=== PATIENT | male | born 1960 | race Caucasian/White ===

== ENCOUNTER → 2017-04-25 | Outpatient (REF) | payer OTHER ==
[2017-04-26 11:00] LABS: FREE T3 3.7 PG/ML (2.2-4.0)
== END ==
LOC: M LAB REF 10:28
DX: E03.9 Hypothyroidism, unspecified (principal)

== ENCOUNTER → 2020-07-26 | Outpatient (REF) | payer OTHER | LOC: M LAB REF 12:01 | PROVIDERS: ATTEND Nurse Practitioner Adult Health | DX: E03.9 Hypothyroidism, unspecified (principal) ==

== ENCOUNTER 2021-08-16 19:26 | Emergency (ER) | payer OTHER ==
[~2021-08-16] VITALS: Ht 175.3 cm; Wt 97.5 kg
[2021-08-16] MEDS ORDERED: ONDANSETRON 4MG/2ML VIAL IV ONE (19:50)
[2021-08-16] MEDS ORDERED: HEPARIN DRIP 25,000 UNITS in IV 1 EA IV SCH (19:55)
[2021-08-16] MEDS ORDERED: TENECTEPLASE 50 MG KIT (TNKase) (J3101 PER 1MG) IV ONE (19:55)
[2021-08-16] MEDS ORDERED: HEPARIN SOD (PORCINE) 5000UNITS/ML 1ML VIAL/SYRINGE IV ONE (19:55)
[2021-08-16] MEDS ORDERED: ISOVUE-370 76% 100ML VIAL As Ordered ONE (19:57)
[2021-08-16 19:59] LABS: BASO # 0.1 10^3/uL (0.0-0.2); BASO % 0.4 % (0.0-1.0); EOS # 0.2 10^3/uL (0.0-0.5); EOS % 0.8 % (0.0-3.0); HEMATOCRIT 41.4 % (42.0-52.0); HEMOGLOBIN 13.6 g/dl (13.5-17.5); LYMPH # 1.8 10^3/uL (1.5-5.0); LYMPH % 9.7 % (24.0-44.0); MEAN CORPUSCULAR HEMOGLOBIN 32.2 pg (27.0-33.0); MEAN CORPUSCULAR HGB CONC 32.9 g/dl (32.0-36.5); MEAN CORPUSCULAR VOLUME 97.9 fl (80.0-96.0); MONO # 0.9 10^3/uL (0.0-0.8); MONO % 4.6 % (2.0-8.0); NEUTROPHILS % 84.1 % (36.0-66.0); PLATELET COUNT, AUTOMATED 260 10^3/uL (150-450); RED BLOOD COUNT 4.23 10^6/uL (4.30-6.10)
[2021-08-16] MEDS: MORPHINE 2 MG/ML 1ML VIAL IV PRN ×2 (20:10→20:53)
[2021-08-16 20:22] LABS: MB/CK RELATIVE INDEX 1.65 (< OR =4)
[2021-08-16 20:28] LABS: ALBUMIN 4.2 GM/DL (3.2-5.2); ALT/SGPT 64 U/L (12-78); BILIRUBIN,DIRECT 0.2 MG/DL (0.0-0.2); BILIRUBIN,TOTAL 0.6 MG/DL (0.2-1.0); BLOOD UREA NITROGEN 19 MG/DL (7-18); CALCIUM LEVEL 9.7 MG/DL (8.8-10.2); CARBON DIOXIDE LEVEL 25 MEQ/L (21-32); CHLORIDE LEVEL 104 MEQ/L (98-107); CREATININE FOR GFR 1.25 MG/DL (0.70-1.30); GLOMERULAR FILTRATION RATE > 60.0 (>49); GLUCOSE, FASTING 133 MG/DL (70-100); LIPASE 114 U/L (73-393); NT-PRO BNP 63 PG/ML (<125); POTASSIUM SERUM 3.8 MEQ/L (3.5-5.1); SODIUM LEVEL 138 MEQ/L (136-145); THYROID STIMULATING HORMONE 0.484 uIU/ML (0.358-3.740); TOTAL PROTEIN 7.7 GM/DL (6.4-8.2)
[2021-08-16 20:32] LABS: INR 0.96; PROTHROMBIN TIME 13.2 SECONDS (12.7-14.5)
[2021-08-16 20:33] LABS: PARTIAL THROMBOPLASTIN TIME 29.6 SECONDS (25.9-37.0)
[2021-08-16] MEDS ORDERED: NITROGLYCERIN 0.4 MG SUBL TABLET SL PRN (20:45)
[2021-08-16 20:50] VITALS: BP 156/93
[2021-08-16] MEDS ORDERED: METOCLOPRAMIDE INJ 10MG/2ML VIAL (J2765 PER 1) IV ONE (20:50)
[2021-08-16] MEDS ORDERED: NITROGLYCERIN 2% OINT 1 GM *U/D* PKT TOP ONE (20:55)
[2021-08-16 20:59] VITALS: BP 156/93
[2021-08-16 21:10] LABS: RSV AMPLIFICATION NEGATIVE (NEGATIVE)
== END 2021-08-16 21:01 | disposition short-term general hospital (02) ==
LOC: M ED 19:26
DX: I21.3 ST elevation (STEMI) myocardial infarction of unspecified site (principal); I10 Essential (primary) hypertension; Z88.0 Allergy status to penicillin
CPT/HCPCS: 71045; 71275; 80047; 80048; 80076; 82550; 82553; 83690; 83880; 84443; 84484; 85025; 85610; 85730; 87631; 93005; 93041; 94760; 96374; 96375; 96376; 99285; J1644; J2270; J2405; J2765; J3101; Q9967

== ENCOUNTER → 2022-08-20 | Outpatient (CLI) | payer OTHER | LOC: M EKG 08:59 | PROVIDERS: ATTEND Nurse Practitioner Adult Health | DX: I49.01 Ventricular fibrillation (principal) ==

== ENCOUNTER → 2024-02-10 | Outpatient (REF) | payer OTHER | LOC: M LAB REF 16:17 | PROVIDERS: ATTEND Nurse Practitioner Adult Health | DX: R71.8 Other abnormality of red blood cells (principal) ==